=== PATIENT | male | born 1950 | race Caucasian/White ===

== ENCOUNTER 2017-01-23 17:12 | Inpatient (IN) ==
[2017-01-23] MEDS ORDERED: POTASSIUM CHLORIDE 20 MEQ TABLET PO PRN (17:14)
[2017-01-23] MEDS ORDERED: ONDANSETRON 4 MG/2 ML VIAL IV PRN (17:14)
[2017-01-23] MEDS ORDERED: MORPHINE 2 MG/1 ML SYRINGE IV PRN (17:14)
[2017-01-23] MEDS ORDERED: BISACODYL 5 MG TABLET PO PRN (17:14)
[2017-01-23] MEDS ORDERED: MAGNESIUM SULF RIDER 2 GM in PREMIX 1 EACH IV PRN (17:14)
[2017-01-23] MEDS ORDERED: ACETAMINOPHEN 325 MG TABLET PO PRN (17:14)
[2017-01-23] MEDS ORDERED: ALPRAZolam 0.25 MG TABLET PO PRN (17:24)
[2017-01-23] MEDS: ALBUTEROL/IPRATROPIUM 3 ML NEB RESP TX SCH (18:55)
--- NOTE | 2017-01-23 19:28 | XRay Report ---
History: Chest pain Date: 01/23/2017 Study: Chest x-ray AP portable Comparison exam: August 01, 2008 There is opacification of the left hemithorax related to remote left pneumonectomy. The right lung is well-expanded and clear. The cardiomediastinal silhouette is unchanged. The pulmonary vasculature is not engorged. Osseous structures are similar. Impression: No acute process. Remote left pneumonectomy PROCEDURE INTERPRETED AT [facility] DEPARTMENT OF RADIOLOGY Final Report Signed by: Dr. Kay Camarillo
[2017-01-23 20:02] LABS: Basophils # 0.1 10*3/uL (0.0-0.2); Basophils % 0.8 % (0.0-0.8); Eosinophils # 0.2 10*3/uL (0.0-0.87); Eosinophils % 2.9 % (0.00-10.9); Hematocrit 47.1 VOL% (42.0-52.0); Hemoglobin 15.7 GM/DL (14.0-18.0); Immature Granulocytes % 0.6 %; Immature Granulocytes Absolute 0.04 #; Lymphocytes # 1.3 10*3/uL (1.4-4.0); Lymphocytes % 19.8 % (21.2-54.2); Mean Corpuscular HGB Conc 33.3 GM/DL (32-36); Mean Corpuscular Hemoglobin 32 PG (27-34); Mean Corpuscular Volume 96.5 FL (87-102); Monocytes # 0.4 10*3/uL (0.11-0.8); Monocytes % 6.4 % (1.7-12.7); Neutrophils # 4.6 10*3/uL (1.4-7.4); Neutrophils % 69.5 % (38.7-73.9); Platelet Count 119 T/CUMM (130-400); Red Blood Count 4.88 MC/CUMM (3.8-5.5); Red Cell Distribution Width 11.9 % (9.3-17.3); White Blood Count 6.6 T/CUMM (4-12)
[2017-01-23 20:08] LABS: INR 1.1; PT Patient Result 11.4 SECS
[2017-01-23 20:37] LABS: Alanine Aminotransferase 19 U/L (16-61); Alkaline Phosphatase 90 U/L (45-117); Aspartate Amino Transferase 17 U/L (0-37); Bilirubin,Total < 0.39 MG/DL (0.2-1.0); Blood Urea Nitrogen 19 MG/DL (7-18); Calcium 9.2 MG/DL (8.5-10.1); Glucose 132 MG/DL (74-106); Osmolality,Calculated 282.4 MOS/KG (273-304); Potassium 4.6 MMOL/L (3.5-5.1); Sodium 140 MMOL/L (136-145); Total Protein 7.2 G/DL (6.4-8.3)
[2017-01-23] MEDS: URSODIOL 300 MG CAPSULE PO SCH ×2 (22:25→22:26)
[2017-01-23] MEDS: ROSUVASTATIN 20 MG TABLET PO SCH ×2 (22:25→22:26)
[2017-01-23] MEDS: ENOXAPARIN 80 MG/0.8 ML SYRINGE SUBCUT ONE ×2 (22:25→22:34)
[2017-01-23] MEDS: CARVEDILOL 6.25 MG TABLET PO SCH ×2 (22:25→22:26)
[2017-01-23] MEDS: NITROGLYCERIN 2% OINT 1 INCH/GM PACK TOP SCH (22:26)
[2017-01-24] MEDS: NITROGLYCERIN 2% OINT 1 INCH/GM PACK TOP SCH ×3 (00:05→12:11)
[2017-01-24] MEDS: ALBUTEROL/IPRATROPIUM 3 ML NEB RESP TX SCH ×3 (01:01→13:02)
[2017-01-24 06:00] LABS: Basophils # 0.1 10*3/uL (0.0-0.2); Basophils % 0.7 % (0.0-0.8); Eosinophils # 0.2 10*3/uL (0.0-0.87); Eosinophils % 3.1 % (0.00-10.9); Hematocrit 45.8 VOL% (42.0-52.0); Hemoglobin 15.4 GM/DL (14.0-18.0); Immature Granulocytes % 0.4 %; Immature Granulocytes Absolute 0.03 #; Lymphocytes % 26.5 % (21.2-54.2); Mean Corpuscular HGB Conc 33.6 GM/DL (32-36); Mean Corpuscular Hemoglobin 32 PG (27-34); Mean Corpuscular Volume 95.6 FL (87-102); Mean Platelet Volume 10.3 FL (9.6-12.0); Monocytes # 0.5 10*3/uL (0.11-0.8); Monocytes % 7.2 % (1.7-12.7); Neutrophils # 4.6 10*3/uL (1.4-7.4); Neutrophils % 62.1 % (38.7-73.9); Platelet Count 116 T/CUMM (130-400); Red Blood Count 4.79 MC/CUMM (3.8-5.5); White Blood Count 7.5 T/CUMM (4-12)
[2017-01-24 06:51] LABS: Risk Ratio 3.03
[2017-01-24] MEDS ORDERED: POTASSIUM CHLORIDE 10 MEQ TABLET PO SCH (09:00)
[2017-01-24] MEDS ORDERED: PANTOPRAZOLE 40 MG TABLET PO SCH (09:00)
[2017-01-24] MEDS ORDERED: SILDENAFIL 20 MG TABLET PO SCH (09:00)
[2017-01-24] MEDS ORDERED: FUROSEMIDE 40 MG TABLET PO SCH (09:00)
[2017-01-24] MEDS ORDERED: CLOPIDOGREL 75 MG TABLET PO SCH (09:00)
[2017-01-24] MEDS ORDERED: ASPIRIN EC 325 MG TABLET PO SCH (09:00)
[2017-01-24] MEDS: URSODIOL 300 MG CAPSULE PO SCH (10:01)
--- NOTE | 2017-01-24 10:01 | EKG Report ---
Stationary ECG Study [facility] Test Date: 01/24/2017 9:59:20 AM Pat Name: DHRUV LOBO Department: Room: 293 Gender: M Architectural Technician: Natanael : 1950 Requested by: Marina Austin Order Number: [id number] Reading MD: KRYS SIMON Intervals [place] Rate: 76 P: 4 MO: 183 QRS: -67 QRSD: 154 T: 91 QT: 397 QTc: 427 Interpretive Statements SINUS RHYTHM NONSPECIFIC INTRAVENTRICULAR CONDUCTION BLOCK CANNOT RULE OUT ANTEROLATERAL INFARCT, AGE UNDETERMINED Electronically Signed On 01-24-17 10:40:37 CDT by KRYS SIMON [email or web address]
[2017-01-24] MEDS: CARVEDILOL 6.25 MG TABLET PO SCH (10:02)
--- NOTE | 2017-01-24 10:17 | Cardiology History & Physical ---
Assessment and Plan - Time spent with patient Time spent with patient: Greater than 30 minutes (due to assessment, plan, and documentation) (1) Chest pain Status: Acute Assessment and plan: See plan of care listed below. Current Visit: Yes (2) Coronary artery disease Status: Chronic Assessment and plan: See plan of care listed below. Current Visit: Yes (3) Hypertension Status: Chronic Assessment and plan: See plan of care listed below. Current Visit: Yes (4) Hyperlipidemia Status: Chronic Assessment and plan: See plan of care listed below. Current Visit: Yes (5) History of lung cancer Status: Resolved Assessment and plan: See plan of care listed below. Current Visit: Yes (6) GERD (gastroesophageal reflux disease) Status: Chronic Assessment and plan: See plan of care listed below. Current Visit: Yes History of Present Illness Chief complaint: chest pain History of present illness: Human Resources Communications Manager: Dr. Cardozo PCP: Dr. Young Mr. Schmitt is a 66 year old male with a history of lung cancer - s/p left lung resection, ASHD - s/p PTCA with 2 stents placed prior to 2008, hypertension, hyperlipidemia, hyperglycemia, GERD, hiatal hernia, and stable angina. Mr. Schmitt was sent from the clinic to the hospital yesterday afternoon due to chest pain. Normally, he rarely has Class II angina. He was awakened 2 mornings ago with epigastric pressure and discomfort that radiated across his lower chest. This lasted most of the morning. Around noon, he took an antacid and by mid afternoon, this had improved. He awoke yesterday morning with chest pressure. It did not resolve and he decided to seek further evaluation at the [facility]. At the time of his exam around 1530, he had continued discomfort. He usually exercises each day but was unable to both days. He has no PND< orthopnea, or n/v. He has chronic dyspnea on exertion but has not had an increase in his shortness of breath. He reports he walks for approximately 30 minutes each day at a pace of about 1 mph at 0% incline. His EKG at the clinic is unchanged from 09/24/16 and shows sinus rhythm with left axis deviation, left anterior magno-block, right bundle branch block - bifascicular block, and evidence of prior inferolatral [place]. He has had 3 sets of negative troponins. Lipid panel revealed triglycerides 85, cholesterol 115, LDL 68, and HDL 38. His H&H was stable at 15.7 and 47.1, platelet count 119. Potassium 4.6, sodium 140, creatinine 1.0. IMPRESSION/PLAN: 1. CHEST PAIN: Patient ruled out for SC. He has had no further pain since admission. He requests to go home. He will need further evaluation with outpatient stress testing which we will set up for tomorrow. 2. CORONARY ARTERY DISEASE: S/p PTCA with 2 stents placed prior to 2008. 3. HYPERTENSION: Currently well controlled on current therapy. 4. HYPERLIPIDEMIA: Lipid panel revealed triglycerides 85, cholesterol 115, LDL 68, and HDL 38. Continue lipid lowering agent. 5. HISTORY OF LUNG CANCER: S/p lung resection in 1994. 6. GERD: Continue PPI. Home Medications Medication Instructions Recorded Confirmed Type ALPRAZolam [Alprazolam] 0.125 mg PO DAILY PRN 01/23/17 01/23/17 History Albuterol Sulfate [Proair HFA] 2 puff INH Q6H PRN 01/23/17 01/23/17 History Ascorbic Acid Tab [Vitamin C Tab] 500 mg PO BID 01/23/17 01/23/17 History Aspirin EC Tab 81 mg PO DAILY 01/23/17 01/23/17 History Carvedilol [Coreg] 6.25 mg PO BID 01/23/17 01/23/17 History Cholecalciferol (Vitamin D3) 2,000 unit PO DAILY 01/23/17 01/23/17 History [Vitamin D3] Clopidogrel [Plavix] 75 mg PO DAILY 01/23/17 01/23/17 History Furosemide Tab [Lasix Tab] 40 mg PO DAILY 01/23/17 01/23/17 History Multivitamin [Multivitamins] 1 each PO DAILY 01/23/17 01/23/17 History [place]-3S/Dha/Epa/Fish Oil [Fish 1 each PO BEDTIME 01/23/17 01/23/17 History Oil 1,200 mg Softgel] Pantoprazole Tab [Protonix Tab] 40 mg PO DAILY 01/23/17 01/23/17 History Potassium Chloride Cap/Tab [K Dur] 10 meq PO DAILY 01/23/17 01/23/17 History Ramipril [Altace] 5 mg PO BID 01/23/17 01/23/17 History Sildenafil Citrate [Sildenafil] 20 mg PO DAILY 01/23/17 01/23/17 History Simvastatin [Zocor] 40 mg PO DAILY 01/23/17 01/23/17 History Ursodiol [Actigall] 300 mg PO BID 01/23/17 01/23/17 History Allergies Allergy/AdvReac Type Severity Reaction Status Date / Time clarithromycin [From Biaxin] Allergy Verified 01/23/17 18:57 metronidazole [From Flagyl] Allergy Verified 01/23/17 18:57 Review of systems: - Constitutional: Present: As per HPI. Absent: anorexia, chills, daytime sleepiness, excessive sweating, fever(s), frequent falls, headache(s), increased appetite, lethargy, malaise, night sweats, stops breathing during sleep, weakness, weight gain, weight loss, fatigue. - EENT Eyes: Present: As per HPI. Absent: blurry vision, diplopia, loss of vision Ears: Present: As per HPI. Absent: decreased hearing, ear discharge, ear pain Nose, mouth and throat: Present: As per HPI. Absent: dysphagia, epistaxis, headache(s), hoarseness, lip swelling, nasal congestion, neck mass, neck pain, sinus pressure, sore throat, throat swelling, tongue swelling, vertigo - Cardiovascular: Present: chest pain at rest, dyspnea on exertion, as per HPI. Absent: chest pain with activity, dyspnea, edema, claudication, diaphoresis, radiating jaw, neck or arm pain, lightheadedness, orthopnea, palpitations, PND - Respiratory: Present: dyspnea on exertion, wheezing, as per HPI. Absent: dyspnea, cough, hemoptysis, snoring, pain on inspiration - Gastrointestinal: Present: heartburn, As per HPI. Absent: abdominal pain, bloating, change in bowel habits, constipation, diarrhea, hematemesis, hematochezia, loose stools, melena, nausea, vomiting - Genitourinary: Present: As per HPI. Absent: difficulty urinating, dysuria, flank pain, hematuria, nocturia, urinary frequency, urinary incontinence - Musculoskeletal: Present: As per HPI. Absent: arthralgias, back pain, joint swelling, limited range of motion, muscle cramps, muscle weakness, myalgias - Neurological: Present: As per HPI. Absent: abnormal gait, abnormal speech, behavioral changes, confusion, convulsions, disequilibrium, dizziness, focal weakness, frequent falls, headache(s), memory loss, numbness, paresthesias, radicular pain, syncope, tremor(s) - Psychiatric: Present: As per HPI. Absent: anxiety, confusion, depression, panic attacks - Endocrine: Present: cold intolerance, As per HPI. Absent: fatigue, heat intolerance, polydipsia, polyphagia - Hematologic/Lymphatic: Present: As per HPI. Absent: easy bleeding, easy bruising, lymphadenopathy Medical,Surgical,& Family Hx - Medical History Cardio: History of: CAD, Hypertension, SC Endocrine: History of: Dyslipidemia Respiratory: History of: Asthma, Lung Cancer (history of lung CA s/p resection in 1994) Gastrointestinal: History of: GERD (hital hernia) - Surgical History Cardiac Surgeries: Sugical HX of: Cardiac Catheterization (stents x2 2002) Thoracic Surgeries: Surgical HX of;: Lobectomy (l lung full lung) HEENT Surgeries: Surgical HX of: Tonsilectomy & Adenoidectomy Abdominal Surgeries: Surgical HX of: Appendectomy, Colonoscopy, EGD - Family History Family History: Reports;: Family Diabetes (daughter), Family Heart Disease ( father, brother) Denies;: Family Cancer, Family Stroke Comment Only: Family Hypertension (father) - Social History Smoking Status: Former smoker Frequency of Alcohol Use: Frequently Type of Drug Use: None Marital Status: Lives With:: Spouse Functional capacity: independent ambulation Cardiology Physical Exam - Constitutional Vitals: Vital Signs Temp Pulse Resp BP Pulse Ox 96.9 F L 66 18 132/65 98 01/24/17 08:00 01/24/17 08:00 01/24/17 08:00 01/24/17 08:00 01/24/17 08:00 Intake and Output 01/23/17 01/24/17 01/24/17 22:59 06:59 14:59 Other: # Voids 0 1 # Bowel Movements 0 Weight 176 lb 7 oz 175 lb 8 oz Exam: General appearance: Appears well. Pleasant and cooperative. Overweight, no acute distress. Head exam: Present: normal inspection, normocephalic, atraumatic. Absent: hematoma, laceration Eye exam: Present: EOMI. Absent: conjunctival injection, nystagmus, periorbital swelling, scleral icterus, laceration to eyelids, jaundice Pupils: Present: PERRL. Absent: constricted, dilated, fixed, irregular, unequal ENT exam: Present: normal exam, normal external ear exam, mucous membranes moist. Neck exam: Present: normal inspection, midline trachea. Absent: masses, lymphadenopathy, tenderness, thyromegaly, carotid bruit Respiratory exam: Present: Right lung galeas clear to auscultation. Absent breath sounds on the left, s/p left pneumonectomy. Absent: accessory muscle use , chest wall tenderness, rales, rhonchi, wheezing. Cardiovascular exam: Present: regular rate and rhythm. Grade 2/6 systolic murmur. Absent: gallop, JVD, rubs, GI/Abdominal exam: Present: normal bowel sounds, soft. Absent: distended, firm , hernia, mass, tenderness. Extremities exam: Present: Normal Gait, No Clubbing, No Cyanosis, Upper Extr. Pulses 2+, Lower Extr. Pulses 2+, No edema. Capillary refill less than 3 seconds. Musculoskeletal: Present: No Fluid Collection, No Pain, Normal Range of Motion, kyphosis Back exam: Present: normal inspection. Absent: muscle spasm, vertebral tenderness Neurological exam: Present: awake, alert, oriented X3, Moves all extremities well without hemiparesis or paralysis. Grossly intact without resting or essential tremor Psychiatric exam: Present: normal affect, normal mood Skin exam: Present: normal color, warm, dry, intact. Absent: cyanosis, diaphoretic, rash, urticaria Result/EKG - Labs CBC & BMP: 01/24/17 05:27 01/23/17 19:41 Lab Results: I have reviewed the past 24 hour labs Labs: Laboratory Results - last 24 hr 01/23/17 01/23/17 01/23/17 19:41 19:41 19:41 WBC 6.6 RBC 4.88 Hgb 15.7 Hct 47.1 MCV 96.5 MCH 32 MCHC 33.3 RDW 11.9 Plt Count 119 L MPV 10.0 Neut % (Auto) 69.5 Lymph % (Auto) 19.8 L [place] % (Auto) 6.4 Eos % (Auto) 2.9 Baso % (Auto) 0.8 Neut # (Auto) 4.6 Lymph # (Auto) 1.3 L [place] # (Auto) 0.4 Eos # (Auto) 0.2 Baso # (Auto) 0.1 Immature Gran % 0.6 Nucleated RBC % 0.0 Immature Gran # 0.04 Nucleated RBCs # 0.00 Immature Plt Fraction 0.0 INR 1.1 PT Patient/Control Mix 11.4 Sodium 140 Potassium 4.6 Chloride 103 Carbon Dioxide 34 H Anion Gap 7.6 BUN 19 H Creatinine 1.00 GFR Calculation 89 BUN/Creatinine Ratio 19.00 Glucose 132 H Calculated Osmolality 282.4 Calcium 9.2 Total Bilirubin < 0.39 AST 17 ALT 19 Alkaline Phosphatase 90 Troponin I Total Protein 7.2 Albumin 4.0 Globulin 3.2 Albumin/Globulin Ratio 1.2 Triglycerides Cholesterol LDL Cholesterol VLDL Cholesterol HDL Cholesterol Heart Disease Risk Ratio 01/23/17 01/23/17 01/24/17 19:41 23:26 05:27 WBC RBC Hgb Hct MCV MCH MCHC RDW Plt Count MPV Neut % (Auto) Lymph % (Auto) [place] % (Auto) Eos % (Auto) Baso % (Auto) Neut # (Auto) Lymph # (Auto) [place] # (Auto) Eos # (Auto) Baso # (Auto) Immature Gran % Nucleated RBC % Immature Gran # Nucleated RBCs # Immature Plt Fraction INR PT Patient/Control Mix Sodium Potassium Chloride Carbon Dioxide Anion Gap BUN Creatinine GFR Calculation BUN/Creatinine Ratio Glucose Calculated Osmolality Calcium Total Bilirubin AST ALT Alkaline Phosphatase Troponin I < 0.015 < 0.015 0.017 Total Protein Albumin Globulin Albumin/Globulin Ratio Triglycerides Cholesterol LDL Cholesterol VLDL Cholesterol HDL Cholesterol Heart Disease Risk Ratio 01/24/17 01/24/17 05:27 05:27 WBC 7.5 RBC 4.79 Hgb 15.4 Hct 45.8 MCV 95.6 MCH 32 MCHC 33.6 RDW 12.0 Plt Count 116 L MPV 10.3 Neut % (Auto) 62.1 Lymph % (Auto) 26.5 [place] % (Auto) 7.2 Eos % (Auto) 3.1 Baso % (Auto) 0.7 Neut # (Auto) 4.6 Lymph # (Auto) 2.0 [place] # (Auto) 0.5 Eos # (Auto) 0.2 Baso # (Auto) 0.1 Immature Gran % 0.4 Nucleated RBC % 0.0 Immature Gran # 0.03 Nucleated RBCs # 0.00 Immature Plt Fraction 0.0 INR PT Patient/Control Mix Sodium Potassium Chloride Carbon Dioxide Anion Gap BUN Creatinine GFR Calculation BUN/Creatinine Ratio Glucose Calculated Osmolality Calcium Total Bilirubin AST ALT Alkaline Phosphatase Troponin I Total Protein Albumin Globulin Albumin/Globulin Ratio Triglycerides 85 Cholesterol 115 LDL Cholesterol 68.0 VLDL Cholesterol 17.0 HDL Cholesterol 38 L Heart Disease Risk Ratio 3.03 - EKG EKG results: interpreted by me, sinus rhythm (with LAD, LAHB, RBBB - bifascicular. )
--- NOTE | 2017-01-24 10:39 | Discharge Summary ---
Hospital Course - Hospital Course Hospital Course: Instructional Coordinator: Dr. Cardozo PCP: Dr. Young SUMMARY: Mr. Schmitt is a 66-year-old male who was sent from the [facility] clinic to the hospital yesterday afternoon due to chest pain. He has a history of atherosclerotic heart disease status post PTCA with 2 stents placed prior 2008, history of lung cancer status post left lung pneumonectomy, hypertension, hyperlipidemia, hyperglycemia, GERD, hiatal hernia, and stable angina. For the past 2 mornings he had been having chest discomfort described as a pressure. His EKG at the clinic showed sinus rhythm with left axis deviation, left anterior hemiblock, right bundle branch block -bifascicular block, and evidence of prior inferolateral [place]. This is unchanged from EKG done on 09/24/2016. He was admitted to the hospital to rule out for [place]. He has had 3 sets of negative troponins and EKG shows no acute changes. He has had no further episodes of chest discomfort and wishes to go home. He is urged to have a repeat stress testing to rule out disease progression. This may be done at [facility] clinic tomorrow morning. Will have this scheduled. He will need to be n.p.o. after midnight and hold his morning dose of Coreg tomorrow morning. At this time, he has met maximum benefit from hospitalization will be discharged home in stable condition. He is anxious to go home and agrees to proceed with stress testing tomorrow morning. Following stress testing, he will need to follow-up with Dr. Cardozo in 1 week. He will be continued on all of his previous home medications. - Time spent with patient Time with patient DS: Greater than 30 minutes Diagnosis - Discharge Diagnosis (1) Chest pain Status: Acute (2) Coronary artery disease Status: Chronic (3) Hypertension Status: Chronic (4) Hyperlipidemia Status: Chronic (5) History of lung cancer Status: Resolved (6) GERD (gastroesophageal reflux disease) Status: Chronic Specialty Discharge - Follow Up or Referrals Follow up with: Rex Cardozo MD [Physician] - 01/30/17 9:30 am (Follow up with Dr. Cardozo in 1 week regarding results from stress testing. Please schedule for outpatient stress test tomorrow morning at [facility]. NPO after midnight on 01/24/17. 01/25- ARRIVE AT 7:30 Hold morning dose of Coreg prior to stress test. ) Discharge Plan - Discharge Data Disposition: Disch To Home/Self Care Condition at Discharge: Stable Discharge Diet: heart healthy Activity: resume usual activities as tolerated Hygiene: no restrictions Weight Bearing at Discharge: full weight bearing Driving: no restrictions Contact your physician if you experience:: fever over 101, Difficulty voiding, Nausea/Vomiting, Shortness of breath, Bleeding, pain uncontrolled by pain medications - Discharge Medications Continue RX: Cholecalciferol (Vitamin D3) [Vitamin D3] 2,000 unit PO DAILY RX: [place]-3S/Dha/Epa/Fish Oil [Fish Oil 1,200 mg Softgel] 1 each PO BEDTIME RX: Sildenafil Citrate [Sildenafil] 20 mg PO DAILY RX: Potassium Chloride Cap/Tab [K Dur] 10 meq PO DAILY RX: Albuterol Sulfate [Proair HFA] 2 puff INH Q6H PRN PRN Reason: Shortness Of Breath/Wheezing RX: Pantoprazole Tab [Protonix Tab] 40 mg PO DAILY RX: Aspirin EC Tab 81 mg PO DAILY RX: Furosemide Tab [Lasix Tab] 40 mg PO DAILY RX: Carvedilol [Coreg] 6.25 mg PO BID RX: Ramipril [Altace] 5 mg PO BID RX: Simvastatin [Zocor] 40 mg PO DAILY RX: Multivitamin [Multivitamins] 1 each PO DAILY RX: ALPRAZolam [Alprazolam] 0.125 mg PO DAILY PRN PRN Reason: Anxiety RX: Ascorbic Acid Tab [Vitamin C Tab] 500 mg PO BID RX: Ursodiol [Actigall] 300 mg PO BID RX: Clopidogrel [Plavix] 75 mg PO DAILY - Follow Up or Referral Follow Up: Rex Cardozo MD [Physician] - 01/30/17 9:30 am (Follow up with Dr. Cardozo in 1 week regarding results from stress testing. Please schedule for outpatient stress test tomorrow morning at [facility]. NPO after midnight on 01/24/17. 01/25- ARRIVE AT 7:30 Hold morning dose of Coreg prior to stress test. ) - Forms/Instructions Instructions: Coronary Artery Disease (GEN), Heart Healthy Diet (GEN) Exam - Constitutional Vitals: Period Temp Pulse Resp BP Sys/Lao Pulse Ox Last 24 Hr 96.4 F-97.6 F 65-89 16-20 106-152/58-79 96-100 Exam: General appearance: Appears well. Pleasant and cooperative. Overweight, no acute distress. Head exam: Present: normal inspection, normocephalic, atraumatic. Absent: hematoma, laceration Eye exam: Present: EOMI. Absent: conjunctival injection, nystagmus, periorbital swelling, scleral icterus, laceration to eyelids, jaundice Pupils: Present: PERRL. Absent: constricted, dilated, fixed, irregular, unequal ENT exam: Present: normal exam, normal external ear exam, mucous membranes moist. Neck exam: Present: normal inspection, midline trachea. Absent: masses, lymphadenopathy, tenderness, thyromegaly, carotid bruit Respiratory exam: Present: Right lung galeas clear to auscultation. Absent breath sounds on the left, s/p left pneumonectomy. Absent: accessory muscle use , chest wall tenderness, rales, rhonchi, wheezing. Cardiovascular exam: Present: regular rate and rhythm. Grade 2/6 systolic murmur. Absent: gallop, JVD, rubs, GI/Abdominal exam: Present: normal bowel sounds, soft. Absent: distended, firm , hernia, mass, tenderness. Extremities exam: Present: Normal Gait, No Clubbing, No Cyanosis, Upper Extr. Pulses 2+, Lower Extr. Pulses 2+, No edema. Capillary refill less than 3 seconds. Musculoskeletal: Present: No Fluid Collection, No Pain, Normal Range of Motion, kyphosis Back exam: Present: normal inspection. Absent: muscle spasm, vertebral tenderness Neurological exam: Present: awake, alert, oriented X3, Moves all extremities well without hemiparesis or paralysis. Grossly intact without resting or essential tremor Psychiatric exam: Present: normal affect, normal mood Skin exam: Present: normal color, warm, dry, intact. Absent: cyanosis, diaphoretic, rash, urticaria Discharge Results Labs on day of discharge: Labs from last 24 hours 01/24/17 01/24/17 01/24/17 05:27 05:27 05:27 WBC 7.5 RBC 4.79 Hgb 15.4 Hct 45.8 MCV 95.6 MCH 32 MCHC 33.6 RDW 12.0 Plt Count 116 L MPV 10.3 Neut % (Auto) 62.1 Lymph % (Auto) 26.5 [place] % (Auto) 7.2 Eos % (Auto) 3.1 Baso % (Auto) 0.7 Neut # (Auto) 4.6 Lymph # (Auto) 2.0 [place] # (Auto) 0.5 Eos # (Auto) 0.2 Baso # (Auto) 0.1 Immature Gran % 0.4 Nucleated RBC % 0.0 Immature Gran # 0.03 Nucleated RBCs # 0.00 Immature Plt Fraction 0.0 INR PT Patient/Control Mix Sodium Potassium Chloride Carbon Dioxide Anion Gap BUN Creatinine GFR Calculation BUN/Creatinine Ratio Glucose Calculated Osmolality Calcium Total Bilirubin AST ALT Alkaline Phosphatase Troponin I 0.017 Total Protein Albumin Globulin Albumin/Globulin Ratio Triglycerides 85 Cholesterol 115 LDL Cholesterol 68.0 VLDL Cholesterol 17.0 HDL Cholesterol 38 L Heart Disease Risk Ratio 3.03 01/23/17 01/23/17 01/23/17 23:26 19:41 19:41 WBC RBC Hgb Hct MCV MCH MCHC RDW Plt Count MPV Neut % (Auto) Lymph % (Auto) [place] % (Auto) Eos % (Auto) Baso % (Auto) Neut # (Auto) Lymph # (Auto) [place] # (Auto) Eos # (Auto) Baso # (Auto) Immature Gran % Nucleated RBC % Immature Gran # Nucleated RBCs # Immature Plt Fraction INR PT Patient/Control Mix Sodium 140 Potassium 4.6 Chloride 103 Carbon Dioxide 34 H Anion Gap 7.6 BUN 19 H Creatinine 1.00 GFR Calculation 89 BUN/Creatinine Ratio 19.00 Glucose 132 H Calculated Osmolality 282.4 Calcium 9.2 Total Bilirubin < 0.39 AST 17 ALT 19 Alkaline Phosphatase 90 Troponin I < 0.015 < 0.015 Total Protein 7.2 Albumin 4.0 Globulin 3.2 Albumin/Globulin Ratio 1.2 Triglycerides Cholesterol LDL Cholesterol VLDL Cholesterol HDL Cholesterol Heart Disease Risk Ratio 01/23/17 01/23/17 19:41 19:41 WBC 6.6 RBC 4.88 Hgb 15.7 Hct 47.1 MCV 96.5 MCH 32 MCHC 33.3 RDW 11.9 Plt Count 119 L MPV 10.0 Neut % (Auto) 69.5 Lymph % (Auto) 19.8 L [place] % (Auto) 6.4 Eos % (Auto) 2.9 Baso % (Auto) 0.8 Neut # (Auto) 4.6 Lymph # (Auto) 1.3 L [place] # (Auto) 0.4 Eos # (Auto) 0.2 Baso # (Auto) 0.1 Immature Gran % 0.6 Nucleated RBC % 0.0 Immature Gran # 0.04 Nucleated RBCs # 0.00 Immature Plt Fraction 0.0 INR 1.1 PT Patient/Control Mix 11.4 Sodium Potassium Chloride Carbon Dioxide Anion Gap BUN Creatinine GFR Calculation BUN/Creatinine Ratio Glucose Calculated Osmolality Calcium Total Bilirubin AST ALT Alkaline Phosphatase Troponin I Total Protein Albumin Globulin Albumin/Globulin Ratio Triglycerides Cholesterol LDL Cholesterol VLDL Cholesterol HDL Cholesterol Heart Disease Risk Ratio DS: Provider Date of admission: 01/23/17 17:14 Primary care physician: Winsome Young MD Attending physician on admission: Rex Cardozo MD Consults: 01/23/17 17:16 Consult to Cardiac Rehabilitation [CONS] Routine Reason for Cardiac Rehabilitation: Risk Factor Modification Other Consult Comment: Evaluate and recommend Discharging clinician: ANGEL Drake Expected date of discharge: 01/24/17
[2017-01-24 11:33] VITALS: BP 106/68
== END 2017-01-24 13:05 | disposition home or self-care (01) | DRG 313 ==
LOC: N.TELEN 17:18
PROVIDERS: ADMIT Internal Medicine Cardiovascular Disease; ATTEND Internal Medicine Cardiovascular Disease

== ENCOUNTER 2017-12-01 16:43 | Observation (INO) ==
[2017-12-01 17:31] LABS: Basophils % 0.4 % (0.0-0.8); Eosinophils # 0.1 10*3/uL (0.0-0.87); Eosinophils % 1.7 % (0.00-10.9); Hematocrit 48.8 VOL% (42.0-52.0); Immature Granulocytes % 0.5 %; Immature Granulocytes Absolute 0.04 #; Lymphocytes # 1.1 10*3/uL (1.4-4.0); Lymphocytes % 13.7 % (21.2-54.2); Mean Corpuscular HGB Conc 32.8 GM/DL (32-36); Mean Corpuscular Hemoglobin 32 PG (27-34); Mean Corpuscular Volume 96.8 FL (87-102); Mean Platelet Volume 10.5 FL (9.6-12.0); Monocytes # 0.3 10*3/uL (0.11-0.8); Monocytes % 4.4 % (1.7-12.7); Neutrophils # 6.1 10*3/uL (1.4-7.4); Neutrophils % 79.3 % (38.7-73.9); Platelet Count 132 T/CUMM (130-400); Red Blood Count 5.04 MC/CUMM (3.8-5.5); Red Cell Distribution Width 12.3 % (9.3-17.3); White Blood Count 7.7 T/CUMM (4-12)
[2017-12-01 17:41] LABS: INR 1.1; PT Patient Result 11.2 SECS; Partial Thromboplastin Time 34.8 SECS (0-40)
[2017-12-01 18:14] LABS: Albumin 4.2 G/DL (3.4-5.0); Bilirubin,Total 0.4 MG/DL (0.2-1.0); Calcium 9.1 MG/DL (8.5-10.1); Osmolality,Calculated 278.5 MOS/KG (273-304); Potassium 4.2 MMOL/L (3.5-5.1); Total Protein 7.7 G/DL (6.4-8.3)
[2017-12-01 18:41] LABS: Apearance,Urine CLEAR (Clear); Bilirubin,Urine Negative (Negative); Blood, Urine Negative (Negative); Glucose,Urine (UA) Negative (Negative); Hyaline Casts,Urine 6 /LPF (0-3); Ketones,Urine Negative (Negative); Mucus,Urine Occasional /LPF (Occasional); Nitrite,Urine Negative (Negative); Protein,Urine Negative; RBC,Urine 2 /HPF (0-4); Urine Color Yellow (Yellow); Urine Specific Gravity 1.009 (1.001-1.035); Urine Urobilinogen < 2.0 EU/DL (0.2-1.0); WBC,Urine <1 /HPF (0-6)
[2017-12-01] MEDS ORDERED: ASPIRIN 325 MG TABLET PO STA (19:29)
[2017-12-01] MEDS ORDERED: NITROGLYCERIN SL 0.4 MG TABLET SL PRN (19:29)
[2017-12-01] MEDS: LACTATED RINGERS 1,000 ML IV SCH (22:09)
[2017-12-02] MEDS: LACTATED RINGERS 1,000 ML IV SCH ×2 (05:23→05:28)
[2017-12-02 08:09] VITALS: BP 136/63
[2017-12-02] MEDS ORDERED: FLUTICASONE 50 MCG NASAL SPRAY 16 GM BOTTLE BOTH NARES PRN (08:13)
[2017-12-02] MEDS ORDERED: diphenhydrAMINE CAP 25 MG CAPSULE PO PRN (08:13)
[2017-12-02] MEDS ORDERED: SILDENAFIL 20 MG TABLET PO PRN (08:13)
[2017-12-02] MEDS ORDERED: ALBUTEROL 2.5 MG/3 ML NEB RESP TX PRN (08:13)
[2017-12-02] MEDS ORDERED: MONTELUKAST 10 MG TABLET PO PRN (08:13)
[2017-12-02] MEDS ORDERED: CHOLECALCIFEROL 1,000 UNIT TABLET PO SCH (09:00)
[2017-12-02] MEDS ORDERED: RAMIPRIL 5 MG CAPSULE PO SCH (09:00)
[2017-12-02] MEDS ORDERED: ASCORBIC ACID 500 MG TABLET PO SCH (09:00)
[2017-12-02] MEDS ORDERED: PANTOPRAZOLE 40 MG TABLET PO SCH ×2 (09:00→21:00)
[2017-12-02] MEDS ORDERED: POTASSIUM CHLORIDE 10 MEQ TABLET PO SCH (09:00)
[2017-12-02] MEDS ORDERED: FUROSEMIDE 40 MG TABLET PO SCH (09:00)
[2017-12-02] MEDS ORDERED: URSODIOL 300 MG CAPSULE PO SCH (09:00)
[2017-12-02] MEDS ORDERED: ASPIRIN EC 81 MG TABLET PO SCH (09:00)
[2017-12-02] MEDS ORDERED: CARVEDILOL 6.25 MG TABLET PO SCH (09:00)
[2017-12-02] MEDS ORDERED: CLOPIDOGREL 75 MG TABLET PO SCH (09:00)
[2017-12-02 09:37] LABS: Risk Ratio 2.95; VLDL CHOLESTEROL 18.2 MG/DL
[2017-12-02] MEDS ORDERED: OMEGA 3 ACID ETHYL ESTERS 1 GM CAPSULE PO SCH (21:00)
[2017-12-02] MEDS ORDERED: SIMVASTATIN 40 MG TABLET PO SCH (21:00)
== END 2017-12-02 11:33 | disposition home or self-care (01) ==
LOC: N.EDINP 16:43 → N.ED 16:43 → N.TELES 19:35
PROVIDERS: ADMIT Internal Medicine Cardiovascular Disease; ATTEND Internal Medicine Cardiovascular Disease